=== PATIENT | female | born 1970 | race African-American/Black ===

== ENCOUNTER 2016-05-12 08:40 | Emergency (ER) | payer OTHER ==
[2016-05-12] MEDS ORDERED: OPTIRAY 350 100 ML VIAL HMH IV ONE (08:41)
[2016-05-12] MEDS ORDERED: ONDANSETRON 4 MG VIAL ONE (12:04)
[2016-05-12] MEDS ORDERED: KETOROLAC 30 MG/ML VIAL ONE (12:04)
[2016-05-12] MEDS ORDERED: DILAUDID 1 MG/ML AMP ONE (12:05)
== END 2016-05-12 17:07 | disposition home or self-care (01) ==
LOC: EEVIPCON 08:40 → ER 08:40
DX: R10.11 Right upper quadrant pain (principal); R11.2 Nausea with vomiting, unspecified; R91.1 Solitary pulmonary nodule; M54.5 Low back pain; Z87.891 Personal history of nicotine dependence
CPT/HCPCS: 36415; 74177; 80053; 81001; 83690; 84703; 85025; 96374; 96375